=== PATIENT | female | born 1940 | race Caucasian/White ===

== ENCOUNTER 2018-08-11 12:37 | Outpatient (CLI) | payer MEDICARE, OTHER ==
[2015-09-07 13:38] VITALS: BMI 50.4
[~2018-08-11 12:37] MED LIST: AMBIEN10 MG PO; CARTIA XT120 MG PO; HYDROCODONE-APA1 TAB PO; HYZAAR 100-25 T1 TAB PO; LOMOTIL TABLET1 TAB PO; MELATONIN 3 MG1 TAB PO; PREDNISONE20 MG PO
== END 2018-08-11 15:25 | disposition home or self-care (01) ==
LOC: D.OPS 12:37
PROVIDERS: ATTEND Family Medicine
DX: Z79.2 Long term (current) use of antibiotics (principal); Z01.812 Encounter for preprocedural laboratory examination

== ENCOUNTER 2019-01-25 16:04 | Outpatient (CLI) | payer MEDICARE, OTHER ==
[2015-09-07 13:38] VITALS: BMI 50.4
== END 2019-01-25 17:50 | disposition home or self-care (01) ==
LOC: D.OPS 16:04
PROVIDERS: ATTEND Family Medicine
DX: L97.909 Non-pressure chronic ulcer of unspecified part of unspecified lower leg with unspecified severity (principal)

== ENCOUNTER 2019-01-26 13:41 | Outpatient (CLI) | payer MEDICARE, BC ==
[2015-09-07 13:38] VITALS: BMI 50.4
== END 2019-01-26 15:10 | disposition home or self-care (01) ==
LOC: D.OPS 13:41
PROVIDERS: ATTEND Family Medicine
DX: L97.909 Non-pressure chronic ulcer of unspecified part of unspecified lower leg with unspecified severity (principal); Z01.812 Encounter for preprocedural laboratory examination

== ENCOUNTER → 2019-04-21 08:31 | Outpatient (CLI) | payer MEDICARE, BC ==
[2015-09-07 13:38] VITALS: BMI 50.4
== END | disposition home or self-care (01) ==
LOC: D.MRI 08:31
PROVIDERS: ATTEND Family Medicine
DX: L08.9 Local infection of the skin and subcutaneous tissue, unspecified (principal)